=== PATIENT | male | born 1950 | race Caucasian/White ===

== ENCOUNTER → 2023-05-26 10:47 | Outpatient (CLI) | payer MEDICARE, OTHER, SELFPAY ==
[2023-05-26 19:42] LABS: Clostridium Difficile Tox PCR Negative for C. diff (Negative)
== END ==
PROVIDERS: PCP Family Medicine; Referring Provider Family Medicine; Visit Provider Family Medicine
DX: R19.7 Diarrhea, unspecified (principal)
CPT/HCPCS: 87493

== ENCOUNTER → 2023-06-12 06:54 | Outpatient (CLI) | payer MEDICARE, OTHER, SELFPAY ==
[2023-06-12 07:52] LABS: Add Manual Diff / Slide Review NO; Basophils Absolute Auto 0 /uL (0-100); Basophils Percent Auto 1.1 % (0-2); Eosinophils Absolute Auto 100 /uL (0-450); Lymphocytes Absolute Auto 1300 /uL (1100-4500); Lymphocytes Percent Auto 38.8 % (25-40); Mean Corpuscular HGB Conc 34.9 % (30-36); Mean Corpuscular Hemoglobin 31.3 PG (26-34); Mean Corpuscular Volume 89.6 fL (80-100); Monocytes Absolute Auto 400 /uL (0-900); Monocytes Percent Auto 11.4 % (3-14); Neutrophils Absolute Auto 1500 /uL (1500-7000); Neutrophils Percent Auto 45.7 % (50-75); Platelet Count 207 X10^3/uL (150-400); Red Blood Cell Count 4.46 X10^6/uL (4.5-5.9); Red Cell Distribution Width 13.2 % (11.6-14.8); White Blood Cell Count 3.3 X10^3/uL (4.5-11.0)
[2023-06-12 08:36] LABS: Alanine Aminotransferase 16 IU/L (<50); Albumin 4.1 g/dL (3.5-5.0); Albumin Globulin Ratio 1.3 (1.0-2.8); Alkaline Phosphatase 51 U/L (38-126); Aspartate Aminotransferase 24 IU/L (17-59); BUN Creatinine Ratio 21.3 (6-22); Bilirubin Total 0.9 mg/dL (0.2-1.3); Blood Urea Nitrogen 17 mg/dL (9-20); Calcium 8.8 mg/dL (8.4-10.2); Carbon Dioxide 25 mmol/L (22-32); Chloride 102 mmol/L (98-107); Cholesterol 186 mg/dL (140-199); Estimated Glomerular Filt Rate > 60 mL/min (>60); Globulin 3.2 g/dL (1.7-4.1); Glucose 99 mg/dL (80-110); HDL Cholesterol 56 mg/dL (40-60); HEMOLYSIS < 15 (0-50); LDL Cholesterol Calculated 117 mg/dL (<100); Sodium 135 mmol/L (137-145); Total Protein 7.3 g/dL (6.3-8.2); Triglycerides 65 mg/dL (35-150)
[2023-06-12 09:58] LABS: Creatinine Urine Random 85.6 mg/dL
[2023-06-12 10:02] LABS: Microalbumi Creatinin Ratio Ur 24.5 ug/mg CR (<30); Microalbumin Urine Random 2.1 mg/dL (0-1.6)
[2023-06-12 18:09] LABS: Hep C Virus Ab w/Reflex Quant NEGATIVE s/c (NEGATIVE)
== END ==
PROVIDERS: PCP Family Medicine; Referring Provider Family Medicine; Visit Provider Family Medicine
DX: Z11.59 Encounter for screening for other viral diseases (principal); I10 Essential (primary) hypertension; Z13.0 Encounter for screening for diseases of the blood and blood-forming organs and certain disorders involving the immune mechanism; E78.5 Hyperlipidemia, unspecified
CPT/HCPCS: 36415; 80053; 80061; 82043; 82570; 85025; 86803

== ENCOUNTER → 2023-11-27 06:29 | Outpatient (CLI) | payer MEDICARE, OTHER, SELFPAY ==
[2023-11-27 08:55] LABS: Cholesterol 195 mg/dL (140-199); HDL Cholesterol 72 mg/dL (40-60); LDL Cholesterol Calculated 103 mg/dL (<100); Triglycerides 100 mg/dL (35-150)
== END ==
PROVIDERS: PCP Family Medicine; Referring Provider Family Medicine; Visit Provider Family Medicine
DX: E78.00 Pure hypercholesterolemia, unspecified (principal)
CPT/HCPCS: 36415; 80061

== ENCOUNTER → 2024-08-10 06:31 | Outpatient (CLI) | payer MEDICARE, OTHER, SELFPAY ==
[2024-08-10 07:49] LABS: Add Manual Diff / Slide Review NO; Basophils Absolute Auto 0 /uL (0-100); Basophils Percent Auto 1.1 % (0-2); Eosinophils Absolute Auto 100 /uL (0-450); Eosinophils Percent Auto 2.4 % (2-4); Hematocrit 39.2 % (41-53); Hemoglobin 13.5 g/dL (13.5-17.5); Lymphocytes Absolute Auto 1100 /uL (1100-4500); Lymphocytes Percent Auto 31.2 % (25-40); Mean Corpuscular HGB Conc 34.4 % (30-36); Mean Corpuscular Hemoglobin 30.9 PG (26-34); Mean Corpuscular Volume 89.9 fL (80-100); Monocytes Absolute Auto 400 /uL (0-900); Monocytes Percent Auto 10.5 % (3-14); Neutrophils Absolute Auto 1900 /uL (1500-7000); Neutrophils Percent Auto 54.8 % (50-75); Platelet Count 234 X10^3/uL (150-400); Red Blood Cell Count 4.35 X10^6/uL (4.5-5.9); Red Cell Distribution Width 13.2 % (11.6-14.8); White Blood Cell Count 3.5 X10^3/uL (4.5-11.0)
[2024-08-10 07:52] LABS: Creatinine Urine Random 61.92 mg/dL
[2024-08-10 08:18] LABS: BUN Creatinine Ratio 27.3 (6-22); Blood Urea Nitrogen 21 mg/dL (9-20); Carbon Dioxide 29 mmol/L (22-32); Chloride 99 mmol/L (98-107); Cholesterol 196 mg/dL (140-199); Estimated Glomerular Filt Rate > 60 mL/min (>60); Glucose 97 mg/dL (80-110); HEMOLYSIS < 15 (0-50); Sodium 136 mmol/L (137-145); Triglycerides 66 mg/dL (35-150)
[2024-08-10 08:57] LABS: HDL Cholesterol 67 mg/dL (40-60); LDL Cholesterol Calculated 116 mg/dL (<100)
== END ==
PROVIDERS: PCP Family Medicine; Referring Provider Family Medicine; Visit Provider Family Medicine
DX: I10 Essential (primary) hypertension (principal); E78.00 Pure hypercholesterolemia, unspecified; Z13.9 Encounter for screening, unspecified
CPT/HCPCS: 36415; 80048; 80061; 82043; 82570; 85025

== ENCOUNTER → 2024-09-01 16:46 | Outpatient (CLI) | payer MEDICARE, OTHER, SELFPAY ==
[2024-09-01 17:22] LABS: Body Fluid Red Blood Cells 11089 /uL; Body Fluid Tot Nucleated Cells 652 /uL
[2024-09-01 17:27] LABS: Body Fluid Color ORANGE
[2024-09-01 17:28] LABS: Body Fluid Appearance CLOUDY; Body Fluid Clotted? NO CLOTS PRESENT
[2024-09-01 17:29] LABS: Crystals Body Fluid - IN-HOUSE NONE Present
[2024-09-01 17:43] LABS: Lymphocytes Body Fluid 63 %; MESO/MACRO/MONO Body Fluid 34 %; Neutrophils Body Fluid 3 %
== END ==
PROVIDERS: PCP Family Medicine; Visit Provider Family Medicine
DX: M25.422 Effusion, left elbow (principal); Z71.89 Other specified counseling
CPT/HCPCS: 87070; 87075; 87205; 89051; 89060

== ENCOUNTER → 2024-10-08 10:32 | Outpatient (CLI) | payer MEDICARE, OTHER, SELFPAY ==
--- NOTE | 2024-10-08 10:34 | DI.RAD.S_ITS ---
PROCEDURE: XR WRIST RT MIN 3V INDICATIONS: Bilateral wrist pain, hand numbness TECHNIQUE: 3 views of the wrist were acquired. COMPARISON: None. FINDINGS: Bones: No fractures or dislocations. 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 No suspicious bony lesions. Soft tissues: No suspicious soft tissue calcifications. IMPRESSION: Degenerative change of the TMC joint without evidence of acute bony abnormality. Dictated by: Chidi Carrizales M.D. on 10/08/2024 at 22:23 Approved by: Chidi Carrizales M.D. on 10/08/2024 at 22:43
--- NOTE | 2024-10-08 10:34 | DI.RAD.S_ITS ---
PROCEDURE: XR WRIST LT MIN 3V INDICATIONS: Bilateral wrist pain, hand numbness TECHNIQUE: 3 views of the wrist were acquired. COMPARISON: None. FINDINGS: Bones: Chronic appearing scaphoid waist fracture with moderate increased sclerosis of the fracture margin and mild increased sclerosis of the proximal body. 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 No suspicious bony lesions. Soft tissues: No suspicious soft tissue calcifications. IMPRESSION: Chronic appearing nondisplaced scaphoid waist fracture with moderate increased sclerosis of the fracture margin and mild increased sclerosis of the proximal body. Degenerative change of the TMC joint. No evidence of acute osseous abnormality. Dictated by: Chidi Carrizales M.D. on 10/08/2024 at 22:14 Approved by: Chidi Carrizales M.D. on 10/08/2024 at 22:23
== END ==
PROVIDERS: PCP Family Medicine; Referring Provider Family Medicine; Visit Provider Family Medicine
DX: S62.025A Nondisplaced fracture of middle third of navicular [scaphoid] bone of left wrist, initial encounter for closed fracture (principal); M25.531 Pain in right wrist; M25.532 Pain in left wrist
CPT/HCPCS: 73110

== ENCOUNTER → 2025-04-05 08:15 | Outpatient (CLI) | payer MEDICARE, OTHER, SELFPAY ==
--- NOTE | 2025-04-05 08:17 | DI.RAD.S_ITS ---
PROCEDURE: XR CHEST 2V INDICATIONS: cough TECHNIQUE: 2 views of the chest were acquired. COMPARISON: None. FINDINGS: Surgical changes and devices: None. Lungs and pleura: Lungs are clear. No pleural effusions or pneumothorax. Mediastinum: Mediastinal contours are normal. Heart is mildly enlarged. Bones and chest wall: No suspicious bony abnormalities. Soft tissues appear unremarkable. IMPRESSION: No acute cardiopulmonary abnormality is seen. Dictated by: Radha Hazel MD, PhD on 04/05/2025 at 9:24 Approved by: Radha Hazel MD, PhD on 04/05/2025 at 9:34
== END ==
PROVIDERS: PCP Family Medicine; Referring Provider Family Medicine; Visit Provider Chiropractor
DX: R05.2 Subacute cough (principal)
CPT/HCPCS: 71046